=== PATIENT | male | born 1985 | race Caucasian/White ===

== ENCOUNTER 2022-11-25 03:11 | Emergency (ER) | payer OTHER ==
[~2022-11-25] VITALS: Ht 165.1 cm; Wt 63.5 kg
[2022-11-25 03:11] VITALS: BP 144/78; PULSE 100; RESP 16; TEMP 98.6; O2SAT 99
--- NOTE | 2022-11-25 03:16 | NUR ---
LINDSAY. JASON NINA. SENT TO [facility]
--- NOTE | 2022-11-25 04:01 | NUR ---
PATIENT LEFT WITHOUT BEING SEEN BY DR. ALEMAN. NO FURTHER CARE PROVIDED FOR PATIENT.
== END 2022-11-25 04:01 | disposition left against medical advice (07) ==
LOC: MED 03:11
DX: M79.89 Other specified soft tissue disorders (principal); Z53.21 Procedure and treatment not carried out due to patient leaving prior to being seen by health care provider
CPT/HCPCS: 99281